=== PATIENT | male | born 1990 | race Caucasian/White ===

== ENCOUNTER 2018-07-01 16:06 | Emergency (ER) | payer MEDICAID ==
[~2018-07-01] VITALS: Ht 167.6 cm; Wt 105.2 kg
[~2018-07-01 16:06] MED LIST: HYDR-3612
[2018-07-01 16:09] VITALS: BP 147/94; PULSE 104; RESP 18; Ht 167.6 cm; Wt 105.2 kg
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
== END 2018-07-01 19:50 | disposition home or self-care (01) ==
LOC: FTE 16:06
DX: S50.851A Superficial foreign body of right forearm, initial encounter (principal); W25.XXXA Contact with sharp glass, initial encounter; Y92.9 Unspecified place or not applicable